=== PATIENT | male | born 2000 | race African-American/Black ===

== ENCOUNTER 2023-03-03 15:23 | Outpatient (REF) | payer OTHER, SELFPAY ==
--- NOTE | ~2023-03-03 | MR_ITS ---
EXAMINATION: MR LOWER LEG WITHOUT CONTRAST, LEFT CLINICAL INFORMATION: Left lower leg pain. COMPARISON: None TECHNIQUE: MRI in a 1.5 Sandra magnet without contrast. Multiplanar multisequence imaging. Tibial diaphysis, distal metaphysis and epiphysis. The proximal portion of the tibia is not included in the [id number]. FINDINGS: Osseous Structures: No evidence of significant edema in the visualized tibia. No fracture seen. There is bright T2, low T1 signal in the medullary cavity of the distal fibular diaphysis. No edema signal in the cortex. Findings are nonspecific. Findings suggest edema, which could be related to etiologies such as mild stress reaction, bone bruise.. No focal fracture plane is identified. The ankle structures not reliably evaluated on the provided images. Muscle/Tendons: No evidence of significant muscle edema, atrophy or fatty infiltration. No tear is identified. The visualized tendons appear intact. MR/MR lower leg LT wo con IMPRESSION: 1. Signal changes in the medullary cavity of the distal fibular diaphysis. Findings suggestive of mild nonspecific edema. Differential considerations include etiologies of bone contusion, stress reaction. No focal fracture plane is identified. 2. No abnormal signal in the visualized tibia. 3. No evidence of muscle tear. 4. Visualized tendons are intact.
== END 2023-03-03 15:24 | disposition home or self-care (01) ==
LOC: HO.MRI 15:23
PROVIDERS: Visit Provider Family Medicine
DX: M79.662 Pain in left lower leg (principal)
CPT/HCPCS: 73718